=== PATIENT | male | born 1990 | race Caucasian/White ===

== ENCOUNTER 2018-08-01 20:26 | Emergency (ER) | payer BC, OTHER ==
--- NOTE | 2018-08-01 20:36 | EDM.PDOC ---
ED HPI GENERAL MEDICAL PROBLEM - General Chief Complaint: Wound Recheck Stated Complaint: NEEDS STITCHES OUT [id number] Time Seen by Provider: 08/01/18 20:33 Source of Information: Reports: Patient History Limitations: Reports: No Limitations - History of Present Illness INITIAL COMMENTS - FREE TEXT/NARRATIVE: was told suture were dissolvable but after 2 weeks they are still there and causing irritation - Related Data Allergies Allergy/AdvReac Type Severity Reaction Status Date / Time Sulfa (Sulfonamide Allergy Rash Verified 08/01/18 20:30 Antibiotics) Home Meds: Home Meds . [No Known Home Meds] 08/01/18 [History] ED ROS GENERAL - Review of Systems Review Of Systems: ROS reveals no pertinent complaints other than HPI. ED EXAM, SKIN/RASH Exam: See Below Exam Limited By: No Limitations General Appearance: Alert, WD/WN, No Apparent Distress Ears: Hearing Grossly Normal Throat/Mouth: Normal Voice, No Airway Compromise Head: Atraumatic Neck: Non-Tender, Full Range of Motion Respiratory/Chest: No Respiratory Distress Cardiovascular: Regular Rate, Rhythm GI/Abdominal: Soft, Non-Tender Neurological: Alert, Oriented, Normal Cognition, Normal Gait, No Motor/Sensory Deficits Psychiatric: Normal Affect, Normal Mood Skin: Warm, Dry, Normal Color Location, Skin: Upper Extremity, Right Lymphatic: No Adenopathy Course - Vital Signs Last Recorded V/S: Last Vital Signs Temp 37.0 C 08/01/18 20:30 Pulse 105 H 08/01/18 20:30 Resp 18 08/01/18 20:30 BP 149/97 H 08/01/18 20:30 Pulse Ox 99 08/01/18 20:30 - Re-Assessments/Exams Free Text/Narrative Re-Assessment/Exam: 08/01/18 20:35 sutures removed without problems bandaid applied Departure - Departure Time of Disposition: 20:35 Disposition: Home, Self-Care 01 Condition: Good Clinical Impression: Visit for suture removal - Discharge Information Instructions: Incision Care, Adult, [id number] Additional Instructions: 1) keep wound clean dry covered 2) recheck as needed
== END 2018-08-01 20:41 | disposition home or self-care (01) ==
LOC: DL.ED 20:26
DX: Z48.02 Encounter for removal of sutures (principal); Z88.2 Allergy status to sulfonamides
CPT/HCPCS: 99281

== ENCOUNTER 2018-08-02 08:19 | Emergency (ER) | payer OTHER ==
--- NOTE | 2018-08-02 08:43 | EDM.PDOC ---
ED HPI GENERAL MEDICAL PROBLEM - General Chief Complaint: Skin Complaint Stated Complaint: [id number] Time Seen by Provider: 08/02/18 08:43 Source of Information: Reports: Patient, Family, RN, RN Notes Reviewed History Limitations: Reports: No Limitations - History of Present Illness INITIAL COMMENTS - FREE TEXT/NARRATIVE: Pt to ER with c/o 1 stitch remaining in his right shoulder. Patient states he had a cyst removed from the shoulder and was told that the sutures were dissolvable. Patient presented to the ER last night for suture removal. This morning, significant other noticed one stitch remaining in the wound. Denies fever, chills, purulent drainage from area. Onset: Today - Related Data Allergies Allergy/AdvReac Type Severity Reaction Status Date / Time Sulfa (Sulfonamide Allergy Rash Verified 08/02/18 08:30 Antibiotics) Home Meds: Home Meds . [No Known Home Meds] 08/01/18 [History] Past Medical History HEENT History: Reports: Impaired Vision - Past Surgical History HEENT Surgical History: Reports: Other (See Below) Other HEENT Surgeries/Procedures: tear duct surgery GI Surgical History: Reports: Colonoscopy, Other (See Below) Other GI Surgeries/Procedures: endoscopy Social & Family History - Caffeine Use Caffeine Use: Reports: Coffee ED ROS GENERAL - Review of Systems Review Of Systems: ROS reveals no pertinent complaints other than HPI. ED EXAM, SKIN/RASH Exam: See Below Exam Limited By: No Limitations General Appearance: Alert, WD/WN, No Apparent Distress Eye Exam: Bilateral Eye: EOMI, Normal Inspection Ears: Normal External Exam, Hearing Grossly Normal Nose: Normal Inspection Throat/Mouth: Normal Inspection, Normal Voice, No Airway Compromise Head: Atraumatic, Normocephalic Neck: Normal Inspection, Supple, Non-Tender, Full Range of Motion Respiratory/Chest: No Respiratory Distress, Lungs Clear, Normal Breath Sounds, No Accessory Muscle Use, Chest Non-Tender Cardiovascular: Normal Peripheral Pulses, Regular Rate, Rhythm, No Edema, No Gallop, No JVD, No Murmur, No Rub Peripheral Pulses: 2+: Radial (L), Radial (R) GI/Abdominal: Normal Bowel Sounds, Soft, Non-Tender (Male) Exam: Deferred Rectal (Males) Exam: Deferred Back Exam: Normal Inspection, Full Range of Motion Extremities: Normal Inspection, Normal Range of Motion, Non-Tender, No Pedal Edema, Normal Capillary Refill Neurological: Alert, Oriented, CN II-XII Intact, Normal Cognition, Normal Gait, Normal Reflexes, No Motor/Sensory Deficits Psychiatric: Normal Affect, Normal Mood Skin: Warm, Dry, Intact, Normal Color, No Rash, Wound/Incision (1 suture remains in the wound of the right shoulder. ) Location, Skin: Upper Extremity, Right Lymphatic: No Adenopathy ED SKIN PROCEDURES - Additional/Other Procedure(s) Other (Free Text) Procedure(s): Suture removed from right shoulder No complications Course - Vital Signs Last Recorded V/S: Last Vital Signs Temp 98.1 F 08/02/18 08:30 Pulse 87 08/02/18 08:30 Resp 14 08/02/18 08:30 BP 135/93 H 08/02/18 08:30 Pulse Ox 98 08/02/18 08:30 Departure - Departure Time of Disposition: 09:13 Disposition: Home, Self-Care 01 Condition: Good Clinical Impression: Visit for suture removal - Discharge Information *PRESCRIPTION DRUG MONITORING PROGRAM REVIEWED*: No *COPY OF PRESCRIPTION DRUG MONITORING REPORT IN PATIENT [place]YAN: No Instructions: Incision Care, Adult Forms: ED Department Discharge Additional Instructions: Follow up with your primary care facility Return to the ER with any white/purulent drainage, fever or chills, increased redness or warmth of the site.
[2018-08-02] MEDS ORDERED: Bacitracin Oint 1 GM U/D Packet TOP ONE (09:17)
== END 2018-08-02 09:20 | disposition home or self-care (01) ==
LOC: DL.ED 08:19
DX: Z48.817 Encounter for surgical aftercare following surgery on the skin and subcutaneous tissue (principal); Z88.2 Allergy status to sulfonamides
CPT/HCPCS: 99282

== ENCOUNTER 2021-12-16 21:09 | Emergency (ER) | payer OTHER ==
[2021-12-16 22:21] LABS: CORONAVIRUS COVID-19 NAA POSITIVE (NEGATIVE)
== END 2021-12-16 22:47 | disposition left against medical advice (07) ==
LOC: DL.ED 21:09
DX: U07.1 COVID-19 (principal); Z53.21 Procedure and treatment not carried out due to patient leaving prior to being seen by health care provider
CPT/HCPCS: 0240U